=== PATIENT | male | born 1950 | race Caucasian/White ===

== ENCOUNTER 2021-08-14 22:14 | Emergency (ER) | payer MEDICARE ==
[~2021-08-14] VITALS: Ht 175.3 cm; Wt 75.7 kg
[2021-08-14 22:30] VITALS: BP 134/73
--- NOTE | 2021-08-14 23:50 | NUR ---
CALLED TO BE ROOMED BUT PT IS NOT LONGER IN THE WAITING ROOM.
== END 2021-08-14 22:55 | disposition left against medical advice (07) ==
LOC: ER 22:17
DX: Z53.21 Procedure and treatment not carried out due to patient leaving prior to being seen by health care provider (principal)